=== PATIENT | male | born 1965 | race Caucasian/White ===

== ENCOUNTER → 2016-09-28 | Outpatient (REF) | LOC: WSOH 14:45 | DX: Z01.89 Encounter for other specified special examinations (principal) ==

== ENCOUNTER → 2016-10-01 | Emergency (ER) | payer OTHER ==
[~2016-10-01] VITALS: Ht 182.9 cm; Wt 110.5 kg
[2016-10-01 14:17] VITALS: BP 161/109; PULSE 87; TEMP 98.3
== END | disposition home or self-care (01) ==
LOC: COL.ER 14:14
DX: Z20.3 Contact with and (suspected) exposure to rabies (principal)

== ENCOUNTER 2016-10-04 10:38 | Outpatient (RCR) | payer OTHER | END 2016-12-30 | LOC: WSOH | DX: Z20.3 Contact with and (suspected) exposure to rabies (principal); Y92.214 College as the place of occurrence of the external cause; Y99.0 Civilian activity done for income or pay ==